=== PATIENT | female | born 1985 | race Caucasian/White ===

== ENCOUNTER 2018-12-10 14:06 | Emergency (ER) | payer OTHER ==
--- NOTE | 2018-12-10 14:50 | EDM.PDOC ---
ED HPI GENERAL MEDICAL PROBLEM - General Chief Complaint: Chest Pain Stated Complaint: CHEST PAIN Time Seen by Provider: 12/10/18 14:30 Source of Information: Reports: Patient, RN Notes Reviewed History Limitations: Reports: No Limitations - History of Present Illness INITIAL COMMENTS - FREE TEXT/NARRATIVE: The patient states that she developed sudden-onset left-sided chest pain that radiates to her jaw, along with lightheadedness, and dyspnea, around 13:30 this afternoon. She describes the sensation as a "constant tightness". She has not identified any modifiers. No associated nausea or diaphoresis, although the patient states that she did feel anxious, earlier. The patient also reports that she has had a fever, up to 102, for the past 5 days. She has had a cough productive of greenish sputum for the past week. No abdominal pain. No constipation or diarrhea. No urinary symptoms. No prior similar symptoms. The patient has not taken any [id number] or home remedies to try to treat her symptoms. The patient reports that she has been experiencing palpitations - an irregular heartbeat - on and off for years, including today. The patient does not have a PCP. She did not receive an influenza vaccine this season. Chest Pain Score (Numeric/FACES): 7 - Related Data Allergies Allergy/AdvReac Type Severity Reaction Status Date / Time No Known Allergies Allergy Verified 12/10/18 14:13 Home Meds: Home Meds . [No Known Home Meds] 12/10/18 [History] Past Medical History - Past Health History Medical/Surgical History: Denies Medical/Surgical History Social & Family History - Tobacco Use Smoking Status *Q: Never Smoker - Alcohol Use Alcohol Use History: Yes Alcohol Use Frequency: Socially - Recreational Drug Use Recreational Drug Use: No - Living Situation & Occupation Living situation: Reports: , with Spouse Occupation: Employed (Professor) ED ROS GENERAL - Review of Systems Review Of Systems: ROS reveals no pertinent complaints other than HPI. ED EXAM, GENERAL - Physical Exam Exam: See Below Exam Limited By: No Limitations General Appearance: Alert, No Apparent Distress, Thin Eye Exam: Bilateral Eye: EOMI, Normal Inspection Ears: Normal External Exam, Hearing Grossly Normal Nose: Normal Inspection Throat/Mouth: Normal Inspection, Normal Lips, Normal Voice, No Airway Compromise Head: Atraumatic, Normocephalic Neck: Normal Inspection, Full Range of Motion Respiratory/Chest: No Respiratory Distress, Lungs Clear, Normal Breath Sounds, No Accessory Muscle Use, Other (Reproducible tenderness to the left pectoralis muscle) Cardiovascular: Normal Peripheral Pulses, Regular Rate, Rhythm, No Edema, No Gallop, No JVD, No Murmur, No Rub Peripheral Pulses: 4+: Radial (L), Radial (R) GI/Abdominal: Normal Bowel Sounds, Soft, Non-Tender, No Organomegaly, No Distention, No Abnormal Bruit, No Mass (Female) Exam: Deferred Rectal (Female) Exam: Deferred Back Exam: Normal Inspection, Full Range of Motion, NT Extremities: Normal Inspection, Normal Range of Motion, No Pedal Edema, Normal Capillary Refill Neurological: Alert, Oriented, Normal Cognition, No Motor/Sensory Deficits Psychiatric: Normal Affect Skin Exam: Dry, Intact, Normal Color, No Rash, Cool EKG INTERPRETATION EKG Date: 12/10/18 Time: 14:18 Rhythm: NSR Rate (Beats/Min): 96 [place]: Normal P-Wave: Enlarged (RAD) QRS: Normal ST-T: Normal QT: Prolonged (QTc 545 ms) Comparison: NA - No Prior EKG Course - Vital Signs Last Recorded V/S: Last Vital Signs Temp 36.4 C 12/10/18 14:13 Pulse 96 12/10/18 14:13 Resp 21 H 12/10/18 14:13 BP 127/81 12/10/18 14:13 Pulse Ox 100 12/10/18 14:13 Orthostatic Blood Pressure [ 118/84 Standing] Orthostatic Blood Pressure [ 117/83 Sitting] Orthostatic Blood Pressure [ 109/71 Supine] - Orders/Labs/Meds Orders: Active Orders 24 hr Category Date Time Status EKG Documentation Completion [RC] STAT Care 12/10/18 14:45 Active Orthostatic Vital Signs [RC] STAT Care 12/10/18 14:47 Active Chest 2V [CR] Stat Exams 12/10/18 14:45 Taken Labs: Laboratory Tests 12/10/18 12/10/18 12/10/18 Range/Units 15:05 15:05 15:05 WBC 3.66 L (3.98-10.04) K/mm3 RBC 4.70 (3.98-5.22) M/mm3 Hgb 14.4 (11.2-15.7) gm/L Hct 40.9 (34.1-44.9) % MCV 87.0 (79.4-94.8) fl MCH 30.6 (25.6-32.2) pg MCHC 35.2 (32.2-35.5) g/dl RDW Std Deviation 39.8 (36.4-46.3) fL Plt Count 159 L (182-369) K/mm3 MPV 8.5 L (9.4-12.3) fl Neutrophils % (Manual) 60 (40-60) % Band Neutrophils % 0 (0-10) % Lymphocytes % (Manual) 34 (20-40) % Atypical Lymphs % 0 % Monocytes % (Manual) 5 (2-10) % Eosinophils % (Manual) 1 (0.7-5.8) % Basophils % (Manual) 0 L (0.1-1.2) Platelet Estimate Adequate RBC Morph Comment Normal D-Dimer, Quantitative 0.37 (0.19-0.50) mg/L Sodium 138 (136-145) mEq/L Potassium 3.8 (3.5-5.1) mEq/L Chloride 100 (98-107) mEq/L Carbon Dioxide 28 (21-32) mEq/L Anion Gap 13.8 (5-15) BUN 8 (7-18) mg/dL Creatinine 0.7 (0.55-1.02) mg/dL Est Cr Clr Drug Dosing 85.45 mL/min Estimated GFR (MDRD) > 60 (>60) mL/min BUN/Creatinine Ratio 11.4 L (14-18) Glucose 100 (74-106) mg/dL Calcium 9.4 (8.5-10.1) mg/dL Total Bilirubin 0.7 (0.2-1.0) mg/dL AST 28 (15-37) U/L ALT 28 (14-59) U/L Alkaline Phosphatase 44 L (46-116) U/L Troponin I < 0.017 (0.00-0.056) ng/mL Total Protein 7.6 (6.4-8.2) g/dl Albumin 3.9 (3.4-5.0) g/dl Globulin 3.7 gm/dL Albumin/Globulin Ratio 1.1 (1-2) Meds: Medications Discontinued Medications Generic Name Dose Route Start Last Admin Trade Name Freq PRN Reason Stop Dose Admin Sodium Chloride 500 mls @ 1,000 mls/hr 12/10/18 15:20 12/10/18 15:42 Normal Saline IV 12/10/18 15:49 1,000 mls/hr .BOLUS ONE Administration - Re-Assessments/Exams Free Text/Narrative Re-Assessment/Exam: 12/10/18 14:49 The patient's left-sided chest pain is reproducible with palpation of the left side of her chest, indicating a musculoskeletal etiology, however, I want to be certain that there is nothing more severe going on, therefore I have also ordered a chest x-ray and D-dimer. Because of the patient's complaint of feeling lightheaded, we will check orthostatics. Because of her recent febrile illness, we will check an influenza swab. 12/10/18 14:53 The patient's ECG is unremarkable, with the exception that her QTc is prolonged at 545 ms. 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 12/10/18 15:20 The patient does not meet criteria for orthostasis, but it is close, therefore I have ordered a 500 mL bolus of NS. 12/10/18 15:39 The patient's influenza swab has returned positive for influenza A. Her symptoms of fever or cough, however, have been present for 5-7 days, therefore she is outside of the window of opportunity for treatment with Tamiflu. The patient's CBC is unremarkable. The patient's CMP is unremarkable. The patient's troponin is negative. The patient's D-dimer is not elevated. 2-view chest radiograph appears to be grossly normal. The cardiac silhouette is within normal limits. No pulmonary vascular congestion. No pleural effusions. No focal infiltrate. No pneumothorax. Formal read per the radiologist pending. 12/10/18 16:15 Test results discussed with the patient. As above, it is too late to treat the patient's influenza with Tamiflu. I will refer the patient to Dr. Xiao Nelson, for potential referral to a [facility], regarding her prolonged QT interval. 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 Workup in the ER included blood work, an influenza swab, positional blood pressure checks, chest x-ray, and an ECG. Your chest pain was reproducible with palpation of her chest, indicating musculoskeletal etiology. Your influenza swab returned positive for influenza A. You have influenza A. Your ECG showed your QT interval to be prolonged. This puts you at an increased risk for potentially serious abnormal heart rhythms. The remainder of your workup was unremarkable. You have not suffered a heart attack. You do not have a blood clot in your lungs. You do not have pneumonia. As discussed, it is too late to treat you with the anti-influenza medicine Tamiflu. This infection will have to run its course. As discussed, you may take [id number] Tylenol OR ibuprofen as needed for discomfort, however, you should not alternate or mixed Tylenol and ibuprofen. As discussed, we do not recommend that you take any [id number] cough or cold remedies, as they have not been shown to be of any benefit, but do cause side effects, such as a stomachache. Please follow-up with Dr. Xiao Nelson, for possible referral to a [facility] regarding your QT prolongation. If any other problems, please do not hesitate to return to the ER. - My Orders Last 24 Hours: My Active Orders 12/10/18 14:45 EKG Documentation Completion [RC] STAT Chest 2V [CR] Stat 12/10/18 14:47 Orthostatic Vital Signs [RC] STAT - Assessment/Plan Last 24 Hours: My Active Orders 12/10/18 14:45 EKG Documentation Completion [RC] STAT Chest 2V [CR] Stat 12/10/18 14:47 Orthostatic Vital Signs [RC] STAT
[2018-12-10] MEDS ORDERED: Sodium Chloride 0.9% 500 ML IV ONE (15:20)
--- NOTE | 2018-12-11 14:03 | CR ---
Chest: Two views of the chest were obtained. Comparison: No prior chest x-ray. Heart size and mediastinum are within normal limits. Lungs are clear. Bony structures are unremarkable. Impression: 1. Nothing acute is seen on two-view chest x-ray. Diagnostic code #1
== END 2018-12-10 16:50 | disposition home or self-care (01) ==
LOC: JD.ED 14:06
DX: I45.81 Long QT syndrome (principal); J10.1 Influenza due to other identified influenza virus with other respiratory manifestations
CPT/HCPCS: 36415; 71046; 80053; 84484; 85007; 85027; 85379; 87804; 93005; 96360; 99285; J7040; 93010; 99284